=== PATIENT | male | born 1940 | race Caucasian/White ===

== ENCOUNTER → 2019-05-27 13:20 | Outpatient (CLI) | payer MEDICARE, SELFPAY ==
--- NOTE | 2019-05-27 13:24 | US_ITS ---
PROCEDURE: US KIDNEY CLINICAL INDICATION: I10 Essential (primary) hypertension COMPARISON: No exams were available for comparison FINDINGS: The right kidney is 9 x 5 x 6 cm. No hydronephrosis or cortical thinning. Left kidney is 10 x 5 x 7 cm. No hydronephrosis or cortical thinning. IMPRESSION: Negative bilateral renal ultrasound Dictated by: Silvestre Jimenez MD 05/27/2019 18:30 Electronically signed by Silvestre Jimenez MD in [place] 05/27/2019 18:30
== END ==
PROVIDERS: Visit Provider Internal Medicine
DX: I10 Essential (primary) hypertension (principal)
CPT/HCPCS: 76770

== ENCOUNTER → 2020-09-30 12:48 | Outpatient (CLI) | payer MEDICARE, SELFPAY ==
--- NOTE | 2020-09-30 13:04 | XR_ITS ---
PROCEDURE: XR DEXA AXIAL SKELETON CLINICAL HISTORY: OSTEOPOROSIS SCREENING COMPARISON: No exams were available for comparison FINDINGS: The right hip BMD is 0.813 with a T-score of -0.9. The left hip BMD is 0.994 with a T-score of -0.3. The lumbar spine BMD is 1.472 with a T-score of 3.5. IMPRESSION: This patient is considered normal according to the World Health Organization criteria. Fracture risk is low. Based on these results a follow-up exam is recommended in 2 year. Dictated by: Silvestre Jimenez MD 10/01/2020 01:18 Silvestre Jimenez MD in [place] 10/01/2020 09:44
== END ==
PROVIDERS: PCP Family Medicine; Visit Provider Internal Medicine
DX: Z87.81 Personal history of (healed) traumatic fracture (principal); Z13.820 Encounter for screening for osteoporosis
CPT/HCPCS: 77080

== ENCOUNTER → 2021-05-16 15:40 | Outpatient (CLI) | payer MEDICARE, SELFPAY ==
[2021-05-16 15:55] LABS: Coronavirus 19, PCR Not Detected (NotDetected); Influenza A, PCR Not Detected (NotDetected); Influenza B, PCR Not Detected (NotDetected)
[2021-05-16 15:56] VITALS: BMI 25.8
== END ==
PROVIDERS: Visit Provider Internal Medicine
DX: Z20.822 Contact with and (suspected) exposure to COVID-19 (principal)
CPT/HCPCS: C9803; U0003; U0005

== ENCOUNTER → 2021-05-16 16:37 | Outpatient (CLI) | payer MEDICARE, SELFPAY ==
[2021-05-16 17:13] LABS: Basophils # 0.1 K/mm3 (0-0.2); Basophils % 1.7 % (0.1-2.0); Eosinophils # 0.3 K/mm3 (0.0-0.4); Eosinophils % 6.9 % (0.1-12.0); Hematocrit 45.1 % (42.0-52.0); Hemoglobin 14.8 g/dL (14.1-18.0); Lymphocytes # 2.2 K/mm3 (0.7-4.5); Lymphocytes % 45.4 % (10-50); Mean Corpuscular HGB Conc 32.8 g/dL (31.8-35.4); Mean Corpuscular Hemoglobin 34.4 pg (27.0-31.2); Mean Corpuscular Volume 104.9 fl (80-94); Mean Platelet Volume 8.9 fl (7.4-10.4); Monocytes # 0.4 K/mm3 (0.1-1.0); Monocytes % 7.5 % (1.7-9.3); Neutrophils # 1.9 K/mm3 (1.8-7.8); Neutrophils % 38.5 % (37.0-80.0); Platelet Count 209 K/mm3 (142-424); Red Cell Distribution Width 13.3 % (11.5-17.5); White Blood Count 4.9 K/mm3 (4.8-10.8)
[2021-05-16 17:30] LABS: Alanine Aminotransferase 21 U/L (12-78); Albumin Level 4.3 g/dl (3.5-5.0); Alkaline Phosphatase 71 U/L (38-126); Anion Gap 7.3 mEq/L (5-15); Aspartate Amino Transferase 35 U/L (17-59); Bilirubin,Direct 0.5 mg/dl (0.0-0.4); Bilirubin,Indirect 0.5 mg/dL (0.0-0.9); Bilirubin,Unconjugated 0.5 mg/dL (0.0-1.1); Blood Urea Nitrogen 12 mg/dl (9-20); Calcium 9.3 mg/dl (8.4-10.2); Carbon Dioxide 33 mmol/L (22.0-30.0); Chloride 102 mmol/L (98-107); Chol/HDL Ratio 3.4 (1-3.5); Cholesterol 165 mg/dl (140-200); Estimated Glomerular Filt Rate 108 ml/min (>60); GFR (African American) 131 ML/MIN (>60); Glucose 94 mg/dl (74-100); HDL Cholesterol 49 mg/dl (40-60); Potassium 4.3 mmoL/L (3.5-5.1); Sodium 138 mmol/L (136-145); Total Protein,Serum 7.1 g/dl (6.3-8.2); Triglycerides 150 mg/dl (30-150); VLDL Cholesterol 30 mg/dL (0-40)
[2021-05-16 17:41] LABS: Direct LDL Cholesterol 63.75 mg/dL (100-129)
[2021-05-16 17:46] LABS: Free T4 (Free Thyroxine) 0.96 ng/dl (0.78-2.19)
[2021-05-16 18:01] LABS: Prostate Specific Ag Screen 1.9 ng/ml (0.0-4.0); Thyroid Stimulating Hormone 6.41 uIU/mL (0.465-4.68)
[2021-05-17 10:37] LABS: Vitamin B12 471 pg/mL (239-931)
[2021-05-17 10:47] LABS: Folate > 20.00 ng/mL
[2021-05-25 21:08] LABS: 1,25 Dihydroxy Vitamin D 56 pg/mL (.); 1,25-Dihydroxy, Vitamin D-2 <10 pg/mL (.); 1,25-Dihydroxy, Vitamin D-3 56 pg/mL (.)
== END ==
PROVIDERS: Nurse Practitioner Family; Visit Provider Internal Medicine
DX: I10 Essential (primary) hypertension (principal); Z12.5 Encounter for screening for malignant neoplasm of prostate
CPT/HCPCS: 80048; 80061; 80076; 82607; 82652; 82746; 84439; 84443; 85025; G0103; C9803; U0003; U0005

== ENCOUNTER → 2021-11-16 11:22 | Outpatient (CLI) | payer MEDICARE, SELFPAY ==
[2021-11-16 12:25] LABS: Basophils # 0.1 K/mm3 (0-0.2); Basophils % 1.2 % (0.1-2.0); Eosinophils # 0.2 K/mm3 (0.0-0.4); Eosinophils % 5.3 % (0.1-12.0); Hematocrit 43.9 % (42.0-52.0); Hemoglobin 14.5 g/dL (14.1-18.0); Lymphocytes % 46.5 % (10-50); Mean Corpuscular Hemoglobin 32.9 pg (27.0-31.2); Mean Corpuscular Volume 99.8 fl (80-94); Mean Platelet Volume 8.8 fl (7.4-10.4); Monocytes # 0.3 K/mm3 (0.1-1.0); Monocytes % 7.5 % (1.7-9.3); Neutrophils # 1.7 K/mm3 (1.8-7.8); Neutrophils % 39.5 % (37.0-80.0); Platelet Count 195 K/mm3 (142-424); Red Blood Count 4.41 M/mm3 (4.60-6.20); Red Cell Distribution Width 12.8 % (11.5-17.5); White Blood Count 4.3 K/mm3 (4.8-10.8)
[2021-11-16 12:48] LABS: Alanine Aminotransferase 19 U/L (12-78); Albumin Level 4.2 g/dl (3.5-5.0); Alkaline Phosphatase 80 U/L (38-126); Aspartate Amino Transferase 34 U/L (17-59); Bilirubin,Direct 0.1 mg/dl (0.0-0.4); Bilirubin,Indirect 0.9 mg/dL (0.0-0.9); Bilirubin,Unconjugated 0.9 mg/dL (0.0-1.1); Chol/HDL Ratio 4.4 (1-3.5); Cholesterol 191 mg/dl (140-200); Creatine Kinase 118 U/L (55-170); HDL Cholesterol 43 mg/dl (40-60); Total Protein,Serum 6.8 g/dl (6.3-8.2); Triglycerides 292 mg/dl (30-150); VLDL Cholesterol 58 mg/dL (0-40)
[2021-11-16 13:00] LABS: Direct LDL Cholesterol 69.16 mg/dL (100-129)
[2021-11-16 13:05] LABS: Free T4 (Free Thyroxine) 1.02 ng/dl (0.78-2.19)
[2021-11-16 16:51] LABS: Chloride 103 mmol/L (98-107); Potassium 4.8 mmoL/L (3.5-5.1); Sodium 138 mmol/L (136-145)
[2021-11-16 16:54] LABS: Anion Gap 9.8 mEq/L (5-15); Blood Urea Nitrogen 17 mg/dl (9-20); Calcium 9.7 mg/dl (8.4-10.2); Carbon Dioxide 30 mmol/L (22.0-30.0); Estimated Glomerular Filt Rate 93 ml/min (>60); GFR (African American) 112 ML/MIN (>60); Glucose 115 mg/dl (74-100)
[2021-11-17 17:11] LABS: Alpha-1-Globulin 0.2 g/dL (0.0-0.4); Alpha-2-Globulin 0.7 g/dL (0.4-1.0); Gamma Globulin 1.3 g/dL (0.4-1.8); Immunoglobulin A, Qn 394 mg/dL (61-437); Immunoglobulin G, Qn 1161 mg/dL (603-1613); Immunoglobulin M, Qn 65 mg/dL (15-143); Protein, Total 7.3 g/dL (6.0-8.5)
[2021-11-24 19:09] LABS: 1,25 Dihydroxy Vitamin D 47 pg/mL (.); 1,25-Dihydroxy, Vitamin D-2 <10 pg/mL (.); 1,25-Dihydroxy, Vitamin D-3 47 pg/mL (.)
== END ==
PROVIDERS: Visit Provider Internal Medicine
DX: I10 Essential (primary) hypertension (principal); Z79.899 Other long term (current) drug therapy
CPT/HCPCS: 36415; 80048; 80061; 80076; 82550; 82652; 82784; 84155; 84165; 84439; 84443; 85025; 86334; 86618

== ENCOUNTER → 2022-09-04 12:59 | Outpatient (CLI) | payer MEDICARE, OTHER, SELFPAY ==
--- NOTE | 2022-09-04 13:00 | CA_ITS ---
APPROVED REPORT EXAM: Comprehensive 2D, Doppler, and color-flow Echocardiogram Hatch Supervisor: JULIANNA Pettit, RVS Ht: 5 ft 10 in Wt: 195lbs BSA: 2.07 BP: 185/79 mmHg Indications: Pre-op clearance, HTN, CAD-CABG, Murmur,HLD 2D Dimensions LVDd 5.02 cm M: 4.2 - 5.9 LVEF (Visual) 64.60 % LVDs 3.24 cm M: 2.5 - 4.0 LA Volume 72.10 mL Aortic Root 3.03 cm M: 3.1 - 3.7 LA Volume Index 34.83 mL/m2 (M/F) 16-34 Left Atrium 3.44 cm M: 3.0 - 4.0 LVOT 1.99 cm (M/F) 1.5-2.5 M-Mode Dimensions RVDd 2.90 cm (0.9-2.6) LA Diam 4.52 cm (1.9-4.0) LVDd 5.56 cm (3.5-5.7) Ao Diam 3.35 cm (2.0-3.7) LVDs 3.79 cm (3.5-5.7) IVSd 0.81 cm (0.6-1.1) PWd 0.97 cm (0.6-1.1) EF (Teich) 59.30% EPSs 0.48 cm FS 31.80% EDV (Teich) 151.20 mL TAPSE 1.64 (<1.7) ESV (Teich) 61.60 mL LV Diastology E Decel Time 163.00 (160-240 msec) E/A Ratio 0.96 MED E' 5.80 (< 7 cm/sec) MED A' 6.80 cm/s E'/MED E' Ratio 14.36 (>14) LAT E' 6.20 (<10 cm/sec) LAT A' 8.10 cm/s E/LAT E' Ratio 13.44 (>14) Aortic Valve AoV Peak Randolph. 177.00 (50-130 cm/s) AO Peak GR. 12.50 mmHg AO Mean GR. 6.50 (<5 mmHg) AO VTI 42.17 (18-25 cm) Mitral Valve MV A Velocity 87.00 (40-130 cm/s) E/A Ratio 0.96 MV Decel. Time 163.00 (160-240 ms) MV PHT 70.00 ms Pulmonary Valve PV Peak Velocity 96.00 (50-150 cm/s) PA End VMAX 214.00 cm/s Tricuspid Valve TR P. Velocity 178.00 cm/s RAP Estimate 10.00 mmHg RVSP 22.70 mmHg Left Ventricle Left atrium is mildly enlarged, left ventricle is normal size, mild concentric left ventricular hypertrophy, estimated ejection fraction 55% with no regional wall motion abnormality, grade 2 diastolic dysfunction seen without tissue Doppler evidence of raise left atrial pressure. Right Ventricle Right atrium and right ventricle are normal size and contractility. Aortic Valve Aortic valve is minimally thickened and fibrosed there is no aortic stenosis or aortic insufficiency. Mitral Valve Mitral valve is grossly normal, there is trace mitral regurgitation. Tricuspid Valve Tricuspid valve grossly normal, there is trace tricuspid regurgitation, tricuspid regurgitation jet velocity is inadequate for calculation of the right ventricular systolic pressure. Pulmonic Valve Pulmonic valve is poorly visualized. Great Vessels Aortic root is normal size. Inferior vena cava is normal size with normal inspiratory collapse. Pericardium No significant pericardial effusion noted. Conclusion 1. Mildly enlarged left atrium, normal left ventricular size, mild concentric left ventricular hypertrophy, estimated ejection fraction 55% with no regional wall motion abnormality, grade 2 diastolic dysfunction seen without tissue Doppler evidence of reduced left atrial pressure. 2. Trace mitral and tricuspid regurgitation. 3. No significant pericardial effusion noted. 4. Inferior vena cava is normal size with normal inspiratory collapse. Electronically signed by : Jd Thomas MD 09/05/2022 06:09:20
--- NOTE | 2022-09-04 13:04 | XR_ITS ---
FINAL REPORT CLINICAL HISTORY: HTN, CAD/CABG COMPARISON: 04/28/2019 FINDINGS: PA and lateral views of the chest were obtained. There are postoperative changes from median sternotomy. The heart size is stable. There is a retrocardiac opacity containing air consistent with a large hiatal hernia. This may have increased since the prior exam. There is emphysema. The lungs are otherwise clear. There is no pleural effusion or pneumothorax. There are thoracic compression fractures which appear unchanged. IMPRESSION: No radiographic evidence of acute cardiac or pulmonary process. Large hiatal hernia which may have increased since the prior exam. Reviewed, Interpreted and Dictated by Ginna Mabry MD Transcribed by Annette Cedeno Authenticated and [facility]
[2022-09-04 14:07] LABS: Basophils # 0.1 K/mm3 (0-0.2); Basophils % 1.5 % (0.1-2.0); Eosinophils # 0.2 K/mm3 (0.0-0.4); Eosinophils % 4.5 % (0.1-12.0); Hematocrit 41.9 % (42.0-52.0); Hemoglobin 13.8 g/dL (14.1-18.0); Lymphocytes # 2.2 K/mm3 (0.7-4.5); Lymphocytes % 41.9 % (10-50); Mean Corpuscular Hemoglobin 32.4 pg (27.0-31.2); Mean Corpuscular Volume 98.2 fl (80-94); Mean Platelet Volume 9.6 fl (7.4-10.4); Monocytes # 0.4 K/mm3 (0.1-1.0); Monocytes % 7.9 % (1.7-9.3); Neutrophils # 2.3 K/mm3 (1.8-7.8); Neutrophils % 44.1 % (37.0-80.0); Platelet Count 172 K/mm3 (142-424); Red Blood Count 4.27 M/mm3 (4.60-6.20); Red Cell Distribution Width 13.4 % (11.5-17.5); White Blood Count 5.3 K/mm3 (4.8-10.8)
[2022-09-04 14:28] LABS: Alanine Aminotransferase 18 U/L (12-78); Albumin Level 4.2 g/dl (3.5-5.0); Alkaline Phosphatase 86 U/L (38-126); Aspartate Amino Transferase 30 U/L (17-59); Bilirubin,Direct 0.2 mg/dl (0.0-0.4); Bilirubin,Indirect 0.5 mg/dL (0.0-0.9); Bilirubin,Total 0.7 mg/dl (0.2-1.3); Bilirubin,Unconjugated 0.5 mg/dL (0.0-1.1); Blood Urea Nitrogen 17 mg/dl (9-20); Calcium 9.1 mg/dl (8.4-10.2); Carbon Dioxide 31 mmol/L (22.0-30.0); Chloride 108 mmol/L (98-107); Chol/HDL Ratio 3.2 (1-3.5); Cholesterol 145 mg/dl (140-200); Estimated Glomerular Filt Rate 81 ml/min (>60); GFR (African American) 98 ML/MIN (>60); Glucose 92 mg/dl (74-100); HDL Cholesterol 45 mg/dl (40-60); Sodium 141 mmol/L (136-145); Total Protein,Serum 6.8 g/dl (6.3-8.2); Triglycerides 226 mg/dl (30-150); VLDL Cholesterol 45 mg/dL (0-40)
[2022-09-04 14:41] LABS: Direct LDL Cholesterol 56.26 mg/dL (100-129)
[2022-09-04 14:46] LABS: 25-OH Vitamin D, Total 27.9 ng/mL (30-100)
[2022-09-04 14:47] LABS: Free T4 (Free Thyroxine) 1.31 ng/dl (0.78-2.19)
[2022-09-04 15:01] LABS: Thyroid Stimulating Hormone 0.21 uIU/mL (0.465-4.68)
[2022-09-19 18:09] LABS: 1,25 Dihydroxy Vitamin D 37 pg/mL (.); 1,25-Dihydroxy, Vitamin D-2 <10 pg/mL (.); 1,25-Dihydroxy, Vitamin D-3 35 pg/mL (.)
== END ==
PROVIDERS: PCP Family Medicine; Visit Provider Physician Assistant
DX: Z01.818 Encounter for other preprocedural examination (principal); Z95.1 Presence of aortocoronary bypass graft; I10 Essential (primary) hypertension; I25.10 Atherosclerotic heart disease of native coronary artery without angina pectoris; E78.5 Hyperlipidemia, unspecified; Z79.899 Other long term (current) drug therapy; E55.9 Vitamin D deficiency, unspecified; R35.0 Frequency of micturition; R35.89 Other polyuria; Z87.898 Personal history of other specified conditions
CPT/HCPCS: 36415; 71046; 80048; 80061; 80076; 82306; 82652; 83735; 84153; 84439; 84443; 85025; 93306

== ENCOUNTER 2025-03-04 13:10 | Emergency (ER) | payer MEDICARE, OTHER, SELFPAY ==
[2025-03-04] VITALS (9 sets, daily range): BP systolic 117–186; BP diastolic 84–152; PULSE 47–63; RESP 12–21; TEMP 36.8; O2SAT 94–98; BMI 24.4
--- OUTSIDE RECORDS SUMMARY | 2025-03-04 13:16 | XMS_ITS | Clinical Summary ---
Author Organization 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 Active UNKNOWN TO PATIENT htn med bid Active aspirin 81 mg Oral Tablet, Delayed Release (E.C.) daily. Active carvedilol (COREG) 12.5 mg Oral Tablet Take 12.5 mg by mouth 2 times daily. Active losartan (COZAAR) 50 mg Oral Tablet Take 50 mg by mouth daily. Active LEVOthyroxine (SYNTHROID) 175 mcg Oral Tablet Take 175 mcg by mouth daily. Active Active Problems Patient Care Coordination No te Formatting of this note migh t be different from the original. Attribution audit completed by Judy Black RN on 12/04/2023. Problem Noted Date Diagnosed Date Coronary arteriosclerosis 03/05/2018 Hypertensive heart disease 03/05/2018 Hypothyroidism 03/05/2018 Status post total left knee replacement 06/30/20 15 Osteoarthritis of left knee 09/23/2014 Hyperlipidemia 09/04/2014 Osteoarthritis of right knee 10/15/2013 Immunizations Immunization Administration Dates Next Due DT 03/21/2010 Influenza High Dose 06/03/2016 Pneumococcal Conjugate Vaccine 13 Valent 016 Surgical History Surgery Date Site/Laterality Comments CARDIAC SURGERY 2001 3 bypass CABG JOINT REPLACEMENT Right TOTAL KNEE ARTHROPLASTY Left TOTAL KNEE ARTHROPLASTY Right CARPAL TUNNEL RELEASE 04/23/2018 Hand/Left LEFT CARPAL TUNNEL RELEASE; Surgeon: Vincent Thurston MD; Location: [facility]; Service: Hand Medical History Medical History Date Comments CAD (coronary artery disease) Thyroid disease Decreased white blood cell count Hyperlipidemia Family History Medical History Relation Name Comments No Known Problems Father No Known Problems Mother No Known Problems Sister ADHD Neg Hx Relation Name Status Comments Father Mother Sister Social History Tobacco Use Types Packs/Day Years Used Date Smoking Tobacco: Never Smokeless Tobacco: Never Alcohol Use Standard Drinks/Week Comments Yes 0 (1 standard drink = 0.6 oz pur e alcohol) occasional PHQ-2 Answer Date Recorded PHQ-2 Score 0 12/13/2018 Sex and Gender Information Value Date Recorded Sex Assigned at Not on file Legal Sex Male 12:29 AM EDT Gender Identity Not on file Sexual Orientation Not on file Occupation Industry Job Start Date Job End Date retired Not on file Not on file Not on file Obstetrics History Last Filed Vital Signs Vital Sign Reading Time Taken Comments Blood Pressure 152/84 12/27/2021 11:05 AM EDT Pulse 52 12/27/2021 11:05 AM EDT Temperature 36.3 C (97.4 F) 04/23/2018 9:33 AM EDT Respiratory Rate 16 12/27/2021 11:05 AM EDT Oxygen Saturation 96% 04/23/2018 9:33 AM EDT Inhaled Oxygen Concentration - - Weight 87.3 kg (192 lb 6.4 oz) 12/27/2021 11:05 AM EDT Height 182.9 cm (6') 12/27/2021 11:05 AM EDT Body Mass Index 26.09 12/27/2021 11:05 AM EDT Plan of Treatment Health Maintenance Due Date Last Done Comments Wellness Exam Medicare 1943 Zoster (1 of 2) 1989 RSV or 60+ (1 - 1-dose 75+ series) 2014 Pneumococcal Vaccine 50+ (2 of 2 - PCV20 or PCV21) 06/03/2017 06/03/2016 DTaP/TDaP/Td (2 - Tdap) 03/21/2020 03/21/2010 COVID-19 Vaccine (4 - 2023-2 5 season) 2024 06/01/2021, 09/17/2020, 08/19/2020 Influenza Vaccine (#1) 2025 6, 05/26/2015 Hepatitis B Vaccine Aged Out No longe r eligible based on patient's age to complete this topic Meningococcal B Vaccine Aged Out No l onger eligible based on patient's age to complete this topic Goals Goal Patient Goal Type Associated Problems Recent Progress Patient-Stated? 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
--- OUTSIDE RECORDS SUMMARY | 2025-03-04 13:16 | XMS_ITS | Clinical Summary ---
Author Organization [facility] Address [address], [address] [place] [address] Care Team Providers Care Veterans Adviser Name Role Phone System, Referring Not In Primary Care Provider U navailable Allergies No known active allergies Medications HYDROcodone-beau taminophen (NORCO) 5-325 MG per tablet Take 1 tablet by mouth 2 times daily as needed for Pain (may take one or two pills for pain every 4-6 hours.). 60 tablet 1 08/25/2013 Active atorvastatin (LIPITOR) 80 MG tablet Take 80 mg by mouth daily. Active levothyroxine (SYNTHROID) 150 MCG tablet Take 150 mcg by mouth Daily. 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 Total knee replacement status 02/11/2014 Osteoarthritis of right knee 12/09/2013 Knee effusion 10/15/2013 Knee pain 10/15/2013 Knee pain, acute 10/15/2013 Osteoarthritis of right knee 10/15/2013 Osteoarthritis 10/15/2013 Immunizations Immunization Administration Dates Next Due Influenza, FLUZONE High Dose , (age 65 y+), IM, Trivalent PF, 0.5mL 05/26/2015 Family History Relation Name Status Comments Father Mother Social History Tobacco Use Types Packs/Day Years Used Date Smoking Tobacco: Never Alcohol Use Standard Drinks/Week Comments Yes 0 (1 standard drink = 0.6 oz pur e alcohol) rarely Sex and Gender Information Value Date Recorded Sex Assigned at Not on file Legal Sex Male 1:42 PM EST Gender Identity Not on file Sexual Orientation Not on file Last Filed Vital Signs Vital Sign Reading Time Taken Comments Blood Pressure 142/84 06/30/2015 1:41 PM EST Pulse 63 06/30/2015 1:41 PM EST Temperature 37.5 C (99.5 F) 05/27/2015 7:58 AM EST Respiratory Rate 16 05/27/2015 7:58 AM EST Oxygen Saturation 94% 05/27/2015 8:32 AM EST Inhaled Oxygen Concentration - - Weight 83 kg (183 lb) 06/30/2015 1:39 PM EST Height 185.4 cm (6' 1 ) 06/30/2015 1:39 PM EST Body Mass Index 24.14 06/30/2015 1:39 PM EST Plan of Treatment Not on file Insurance [facility] [id number] MEDICARE Advance Directives * Full Code (Latest Code Status on File) Date Activated Date Inactivated Comments 05/25/2015 1:53 PM 05/27/2015 1:09 PM * Full Code Date Activated Date Inactivated Comments 12/09/2013 2:01 PM 12/11/2013 2:16 PM Care Teams Veterans Adviser Relationship Specialty Start Date End Date System, Referring Not In PCP - General 05/04/15
--- NOTE | 2025-03-04 13:20 | CT_ITS ---
FINAL REPORT CLINICAL HISTORY: severe new BURNETTE x1 wk COMPARISON: none FINDINGS: CTA HEAD TECHNIQUE: Thin section axial CT with contrast with 3D MIP reconstruction This study was performed with techniques to keep radiation doses as low as reasonably achievable, (ALARA). Individualized dose reduction techniques using automated exposure control or adjustment of mA and/or kV according to the patient's size were employed. FINDINGS: The A1 segment of the left YUSRA is hypoplastic. Central YUSRA and MCA are otherwise unremarkable. 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 The duplicate maker are widely patent. IMPRESSION: No acute large vessel occlusive disease. 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 This study was performed using automated techniques to achieve radiation exposure as low as reasonably achievable Reviewed, Interpreted and Dictated by Rigo Trevino MD Transcribed by Edilma Gomez Authenticated and [facility]
--- NOTE | 2025-03-04 13:20 | CT_ITS ---
FINAL REPORT CLINICAL HISTORY: severe new BURNETTE x1 wk COMPARISON: none FINDINGS: CT NECK ANGIO, WITHOUT AND WITH CONTRAST TECHNIQUE: Thin section axial CT with contrast with multiplanar 3D MIP reconstruction. This study was performed with techniques to keep radiation doses as low as reasonably achievable, (ALARA). Individualized dose reduction techniques using automated exposure control or adjustment of mA and/or kV according to the patient''s size were employed. NASCET criteria and technique was utilized during interpretation. FINDINGS: Aortic arch: Arch shows no significant narrowing. Great vessel origins are widely patent. Right carotid: Severe calcified plaque disease proximal right ICA. Proximal right ICA stenosis measures 70-80%. Left carotid: Moderate to severe calcified plaque disease proximal ICA with narrowing measuring 60-70%. Vertebrals: Left vertebral artery is dominant. No significant stenosis is present. IMPRESSION: Right ICA stenosis 70-80% and left ICA stenosis 60-70%. This study was performed using automated techniques to achieve radiation exposure as low as reasonably Reviewed, Interpreted and Dictated by Rigo Trevino MD Transcribed by Edilma Gomez Authenticated and [facility]
--- NOTE | 2025-03-04 13:20 | CT_ITS ---
FINAL REPORT TECHNIQUE: Noncontrast exam This study was performed with techniques to keep radiation doses as low as reasonably achievable, (ALARA). Individualized dose reduction techniques using automated exposure control or adjustment of mA and/or kV according to the patient''s size were employed. CLINICAL HISTORY: severe new BURNETTE x1 wk COMPARISON: none FINDINGS: No abnormal density is seen. Moderate atrophy is noted. There are mild chronic microvascular changes. There is no hemorrhage. No mass effect is seen. Bone windows show no evidence of fracture. IMPRESSION: No acute findings Reviewed, Interpreted and Dictated by Rigo Trevino MD Transcribed by Edilma Gomez Authenticated and [facility]
--- NOTE | 2025-03-04 13:23 | HMH.EDGENADL ---
Discharge Plan Disposition Patient Disposition: Home, Self-Care Prescriptions Prescriptions: No Action aspirin 81 mg tablet,delayed release (DR/EC) 81 mg PO DAILY losartan 50 mg tablet 50 mg PO BID Qty: 180 3RF atorvastatin 80 mg tablet See Rx Instructions .ROUTE .COMPLEX Qty: 90 4RF Dose Instruction: TAKE 1 TABLET BY MOUTH EVERY DAY FOR CHOLESTEROL Rx Instructions: TAKE 1 TABLET BY MOUTH EVERY DAY FOR CHOLESTEROL carvedilol 12.5 mg tablet See Rx Instructions .ROUTE .COMPLEX Qty: 180 1RF Dose Instruction: TAKE ONE TABLET BY MOUTH TWICE A DAY Rx Instructions: TAKE ONE TABLET BY MOUTH TWICE A DAY levothyroxine 175 mcg capsule 175 mcg PO DAILY Qty: 90 3RF Referrals Follow up/Referrals: Balwinder Elliott MD [Referring, Medical] - See instructions Activity Restrictions/Add. 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 If you develop any new or worsening symptoms, such as worsening headache, facial drooping, lethargy, weakness on one or both sides of your body, or any other signs concerning for stroke, return to the emergency department for evaluation. Clinical Impressions Clinical Impression: Headache, Hypertension, Aneurysm of basilar artery Print Language Print Language: [place] Citizen Discharge ED Provider: Taylor Baker General Adult HPI <Taylor Baker MD - Last Filed: 03/04/25 15:46> General Chief complaint: Headache Stated complaint: headache Time Seen by Provider: 03/04/25 13:12 Mode of Arrival: Ambulatory Source of Information: Patient and Spouse Description of Symptoms (Recalled from ER Triage Doc. by RN): patient present from Cardiology office for a headache that has been around for approximately a week. he is currently rates his headache at a 4/10. he normally does not have headaches. the patient also statesnthat he has higher blood pressure than normal. he did state he took his prescribed carvedilol this morning. History of Present Illness HPI narrative: Patient is a 84-year-old male presents today with a headache. States that it has been ongoing for the last week no history of headaches at any point in his life. Has been fluctuating throughout the day reached its maximal intensity today this morning is which point he said it was a 10 out of 10 some of the worst pain he is ever had in his life. He took 1000 mg of acetaminophen and that significantly improved it is currently a 4 out of 10 and is just an annoying pain. He states the majority of the week it has just been an annoyance but this morning it was severe. Denies any neurologic symptoms such as numbness weakness tingling changes in coordination or vision etc. Does state he is had some mild photophobia associated with the headaches but it improves when the headache gets better. Does note that he may have had some improvement as his blood pressure has dropped. Denies any neck stiffness denies any fevers or chills. Denies any changes in vision or jaw claudication. Denies any other upper respiratory symptoms that been ongoing or pressure in his face or sinuses. Past medical history reviewed with his son Bernadine Guerrero. He also had an EKG that was performed in cardiology office which showed sinus bradycardia. Related Data Home Medications ?Medication ?Instructions ?Recorded ?Confirmed aspirin 81 mg tablet,delayed 81 mg PO DAILY heart. 03/31/19 03/04/25 release Previous Rx's ?Medication ?Instructions ?Recorded losartan 50 mg tablet 50 mg PO BID #180 tabs 11/05/23 atorvastatin 80 mg tablet See Rx Instructions .Route 07/08/24 .COMPLEX #90 tabs carvedilol 12.5 mg tablet See Rx Instructions .Route 08/04/24 .COMPLEX #180 tabs levothyroxine 175 mcg capsule 175 mcg PO DAILY #90 caps 11/05/24 Allergies Allergy/AdvReac Type Severity Reaction Status Date / Time No Known Allergies Allergy Verified 03/04/25 12:54 [facility] <J Timothy Baker MD - Last Filed: 03/04/25 15:46> [facility] Disclaimer: The information contained in this section may have been updated after the patient was seen, as this information can be updated by other users. Medical History History of dysuria On statin therapy Hyperlipidemia Surgical History Hx of CABG Social History Smoking Status: Never smoker alcohol intake: never current occupational status: retired Travel in the last 8 weeks?: None household members: spouse housing: house current occupational exposures/hazards: No caffeine: Yes Have you lived/traveled outside US in past 30 days?: No Contact w/someone who lives/traveled outside US past 30 days?: No Exposure to someone with infectious disease in past 14 days?: No Do you have a fever (greater than 100.4 F or 38 C)?: No Have you tested positive for COVID-19?: No Exposed to someone with COVID-19 in past 14 days?: No Do you have a sore throat?: No Do you have a cough?: No Do you have any weakness?: No Do you have any diarrhea?: No Are you experiencing any unusual bleeding?: No Do you have any muscle aches/pain?: No Do you have any abdominal pain?: No Are you experiencing loss of taste or smell?: No Other Medical History Have you received the Flu Vaccine for this season: Yes Have you received the Pneumonia Vaccine: Yes <Taylor Baker MD - Last Filed: 03/04/25 15:46> ROS Obtained: Yes All systems reviewed & no additional complaints except as documented Physical Exam <Taylor Baker MD - Last Filed: 03/04/25 15:46> General General appearance: alert and in no apparent distress Respiratory Respiratory exam: Present normal lung sounds bilaterally; Absent respiratory distress Cardiovascular Cardiovascular exam: Present bradycardia Neurological Exam Neurological exam: Present alert, oriented X3, CN II-XII intact, normal gait and other (Normal finger-nose [id number] rapid alternating movements very sharp cognitively); Absent motor sensory deficit Medical Decision Making <Taylor Baker MD - Last Filed: 03/04/25 15:46> Medical Records Screening: Per USPSTF and CDC recommendations, given the prevalence of disease in our region, it is our hospital?s policy to screen for HIV and viral Hepatitis for all patients aged 18 and over and those with ongoing risk factors. Marcelino Inquiry Pt receiving controlled substance: No Vital Signs: 03/04/25 13:15 03/04/25 14:18 03/04/25 14:30 Temperature 98.2 F Temperature Source Oral Pulse Rate 56 L 54 L Pulse Rate [Right Brachial] 47 L Respiratory Rate 18 Blood Pressure 186/92 H 184/92 H Blood Pressure [Right Arm] 164/128 H Blood Pressure Mean [Right Arm] 140 Blood Pressure Source [Right Arm] Automatic Cuff Blood Pressure Position [Right Arm] Sitting 02 Sat by Pulse Oximetry 98 98 97 Oxygen Delivery Method Room Air 03/04/25 15:01 03/04/25 15:10 03/04/25 15:31 Temperature Temperature Source Pulse Rate 63 59 L 58 L Pulse Rate [Right Brachial] Respiratory Rate 12 21 14 Blood Pressure 160/88 H 156/84 H 165/87 H Blood Pressure [Right Arm] Blood Pressure Mean [Right Arm] Blood Pressure Source [Right Arm] Blood Pressure Position [Right Arm] 02 Sat by Pulse Oximetry 96 95 94 L Oxygen Delivery Method 03/04/25 16:01 03/04/25 16:20 03/04/25 16:31 Temperature 98.2 F Temperature Source Oral Pulse Rate 56 L 52 L 53 L Pulse Rate [Right Brachial] Respiratory Rate 16 20 17 Blood Pressure 174/152 H 171/92 H 117/92 H Blood Pressure [Right Arm] Blood Pressure Mean [Right Arm] Blood Pressure Source [Right Arm] Blood Pressure Position [Right Arm] 02 Sat by Pulse Oximetry 97 96 Oxygen Delivery Method Room Air Lab Data Lab Results 03/04/25 13:11: WBC 6.0, RBC 4.35 L, Hgb 13.7 L, Hct 41.7 L, MCV 95.9 H, MCH 31.5 H, MCHC 32.9, RDW 12.7, Plt Count 182, MPV 11.0 H, Neut % (Auto) 53.3, Lymph % (Auto) 35.7, [place] % (Auto) 8.7, Eos % (Auto) 1.3, Baso % (Auto) 0.7, Neut # (Auto) 3.2, Lymph # (Auto) 2.1, [place] # (Auto) 0.5, Eos # (Auto) 0.1, Baso # (Auto) 0.0, ESR 14, Sodium 139, Potassium 4.5, Chloride 102, Carbon Dioxide 31 H, Anion Gap 10.5, BUN 16, Creatinine 0.70, Estimated Creat Clear 62, Estimated GFR 107, Est GFR ( Amer) 130, Glucose 110 H, Calcium 9.2, Total Bilirubin 0.9, AST 42, ALT 31, Alkaline Phosphatase 91, C-Reactive Protein 0.4, Total Protein 7.4, Albumin 4.5, Globulin 2.9, Albumin/Globulin Ratio 1.6, TSH < 0.02 L, Free T4 1.74 03/04/25 15:05: Chlamy pneumoniae PCR Not detected, Adenovirus (PCR) Not detected, B. pertussis DNA (PCR) Not detected, Coronavirus OC43 (PCR) Not detected, Coronavirus HKU1 (PCR) Not detected, Coronavirus 229E (PCR) Not detected, SARS-CoV-2 (PCR) Not detected, Coronavirus NL63 (PCR) Not detected, Human Metapneumovir PCR Not detected, Influenza A (H1) PCR Not detected, Influ A (H1N1/09) PCR Not detected, Influenza A (H3) PCR Not detected, Influenza Type A (PCR) Not detected, Influenza Type B (PCR) Not detected, M. pneumoniae (PCR) Not detected, Parainfluenza 1 (PCR) Not detected, Parainfluenza 2 (PCR) Not detected, Parainfluenza 3 (PCR) Not detected, Parainfluenza 4 (PCR) Not detected, RSV (PCR) Not detected, Entero/Rhino (PCR) Not detected 03/04/25 13:11 03/04/25 13:11 Orders (Tests/Meds): ED MEDICATIONS Discontinued Medications Generic Name Dose Route Start Last Admin Trade Name Freq PRN Reason Stop Dose Admin Diazepam 5 mg 03/04/25 14:56 03/04/25 15:02 Diazepam 10mg/2ml Syringe IV 03/04/25 14:57 5 mg ONCE ONE Administration Diphenhydramine HCl 12 mg 03/04/25 13:20 03/04/25 13:33 Diphenhydramine 50mg/Ml Vial IV 03/04/25 13:21 12 mg ONCE ONE Administration Lactated Ringer's 500 mls @ 999 mls/hr 03/04/25 13:30 03/04/25 13:35 Lactated Ringer's 1000 Ml Bag IV 03/04/25 14:00 999 mls/hr .Q31M LIBERTAD Administration Iopamidol 80 ml 03/04/25 14:02 03/04/25 14:03 Iopamidol-370 (76%);100ml Bottle IV 03/04/25 14:03 80 ml ONCE ONE Administration Ketorolac Tromethamine 10 mg 03/04/25 13:20 03/04/25 13:34 Ketorolac 30mg/Ml Vial IV 03/04/25 13:21 10 mg ONCE ONE Administration Prochlorperazine Edisylate 5 mg 03/04/25 13:20 03/04/25 13:35 Prochlorperazine 10mg/2ml Vial IV 03/04/25 13:21 5 mg ONCE ONE Administration Sodium Chloride 50 ml 03/04/25 14:02 03/04/25 14:03 0.9 % Sodium Chloride 50 Ml Vial IV 03/04/25 14:03 50 ml ONCE ONE Administration Sodium Chloride 10 ml 03/04/25 14:02 03/04/25 14:03 Sodium Chloride 0.9% 10ml Syr (Rad Only) IV 03/04/25 14:03 10 ml ONCE ONE Administration ORDERS Category Date Time Status CT angio head Stat Cat Scan 03/04/25 13:[address] angio neck Stat Cat Scan 03/04/25 13:[address] head/brain wo con Stat Cat Scan 03/04/25 13:20 Completed CBC w/Auto Diff [Complete Blood Count Auto Diff] Stat Lab 03/04/25 13:11 Completed CMP [Comprehensive Metabolic Panel] Stat Lab 03/04/25 13:11 Completed CRP [C-Reactive Protein] Stat Lab 03/04/25 13:11 Completed ESR [Erythrocyte Sedimentation Rate] Stat Lab 03/04/25 13:11 Completed Free T4 (Free Thyroxine) Routine Lab 03/04/25 13:11 Completed Full Resp Panel w/COVID ([facility]) Routine Lab 03/04/25 15:05 Completed TSH [Thyroid Stimulating Hormone] Stat Lab 03/04/25 13:11 Completed Medical Decision Narrative: Very well-appearing 84-year-old male presenting today with 1 week history of a headache. Differential includes space-occupying lesion, hemorrhage, vascular dissection, vasculitis, encephalitis, aneurysm etc. Will get a noncontrasted CT scan however given the fact that this has been ongoing for 1 week any type of blood that would have to be in his brain would be isodense therefore we will get a CT angiography of the head and neck to rule out any dissection or obvious aneurysm. No indication for an LP at this point as the number needed to treat would be excessive with regards to looking present acromio he also has no clinical signs or symptoms at the moment of meningitis. Will give him low-dose of migraine cocktail including 10 of IV Toradol 5 of Compazine and 12-1/2 of Benadryl. Reassessment 3:[address] scans performed which I personally interpreted noncontrasted CT scan of the head looks unremarkable from my perspective radiology read consistent with this as well. 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 No all other explanation of the patient's symptoms. Patient on reassessment clinically looks great states that his headache is much better. He is still significantly hypertensive. His son who is one of our terminal carman had a discussion with me and told me that the patient does drink some bourbon regularly and has been drinking little bit less than normal and that it is possible he is having some mild withdrawal which may be causing his hypertension therefore we gave him some Valium which significantly improved the patient's symptoms. Given the fact that we found this 9 mm aneurysm we cannot prove that this is causative of the patient's underlying headache however it is concerning enough that we will have a discussion with [facility] neurosurgery we are awaiting that phone call back at the moment. Care will be transitioned to Dr. Boateng regarding final disposition of the patient. <Gabriel Pichardo MD - Last Filed: 03/04/25 18:02> Vital Signs: 03/04/25 13:15 03/04/25 14:18 03/04/25 14:30 Temperature 98.2 F Temperature Source Oral Pulse Rate 56 L 54 L Pulse Rate [Right Brachial] 47 L Respiratory Rate 18 Blood Pressure 186/92 H 184/92 H Blood Pressure [Right Arm] 164/128 H Blood Pressure Mean [Right Arm] 140 Blood Pressure Source [Right Arm] Automatic Cuff Blood Pressure Position [Right Arm] Sitting 02 Sat by Pulse Oximetry 98 98 97 Oxygen Delivery Method Room Air 03/04/25 15:01 03/04/25 15:10 03/04/25 15:31 Temperature Temperature Source Pulse Rate 63 59 L 58 L Pulse Rate [Right Brachial] Respiratory Rate 12 21 14 Blood Pressure 160/88 H 156/84 H 165/87 H Blood Pressure [Right Arm] Blood Pressure Mean [Right Arm] Blood Pressure Source [Right Arm] Blood Pressure Position [Right Arm] 02 Sat by Pulse Oximetry 96 95 94 L Oxygen Delivery Method 03/04/25 16:01 03/04/25 16:20 03/04/25 16:31 Temperature 98.2 F Temperature Source Oral Pulse Rate 56 L 52 L 53 L Pulse Rate [Right Brachial] Respiratory Rate 16 20 17 Blood Pressure 174/152 H 171/92 H 117/92 H Blood Pressure [Right Arm] Blood Pressure Mean [Right Arm] Blood Pressure Source [Right Arm] Blood Pressure Position [Right Arm] 02 Sat by Pulse Oximetry 97 96 Oxygen Delivery Method Room Air Lab Data Lab Results 03/04/25 13:11: WBC 6.0, RBC 4.35 L, Hgb 13.7 L, Hct 41.7 L, MCV 95.9 H, MCH 31.5 H, MCHC 32.9, RDW 12.7, Plt Count 182, MPV 11.0 H, Neut % (Auto) 53.3, Lymph % (Auto) 35.7, [place] % (Auto) 8.7, Eos % (Auto) 1.3, Baso % (Auto) 0.7, Neut # (Auto) 3.2, Lymph # (Auto) 2.1, [place] # (Auto) 0.5, Eos # (Auto) 0.1, Baso # (Auto) 0.0, ESR 14, Sodium 139, Potassium 4.5, Chloride 102, Carbon Dioxide 31 H, Anion Gap 10.5, BUN 16, Creatinine 0.70, Estimated Creat Clear 62, Estimated GFR 107, Est GFR ( Amer) 130, Glucose 110 H, Calcium 9.2, Total Bilirubin 0.9, AST 42, ALT 31, Alkaline Phosphatase 91, C-Reactive Protein 0.4, Total Protein 7.4, Albumin 4.5, Globulin 2.9, Albumin/Globulin Ratio 1.6, TSH < 0.02 L, Free T4 1.74 03/04/25 15:05: Chlamy pneumoniae PCR Not detected, Adenovirus (PCR) Not detected, B. pertussis DNA (PCR) Not detected, Coronavirus OC43 (PCR) Not detected, Coronavirus HKU1 (PCR) Not detected, Coronavirus 229E (PCR) Not detected, SARS-CoV-2 (PCR) Not detected, Coronavirus NL63 (PCR) Not detected, Human Metapneumovir PCR Not detected, Influenza A (H1) PCR Not detected, Influ A (H1N1/09) PCR Not detected, Influenza A (H3) PCR Not detected, Influenza Type A (PCR) Not detected, Influenza Type B (PCR) Not detected, M. pneumoniae (PCR) Not detected, Parainfluenza 1 (PCR) Not detected, Parainfluenza 2 (PCR) Not detected, Parainfluenza 3 (PCR) Not detected, Parainfluenza 4 (PCR) Not detected, RSV (PCR) Not detected, Entero/Rhino (PCR) Not detected Orders (Tests/Meds): ED MEDICATIONS Discontinued Medications Generic Name Dose Route Start Last Admin Trade Name Shane PRN Reason Stop Dose Admin Diazepam 5 mg 03/04/25 14:56 03/04/25 15:02 Diazepam 10mg/2ml Syringe IV 03/04/25 14:57 5 mg ONCE ONE Administration Diphenhydramine HCl 12 mg 03/04/25 13:20 03/04/25 13:33 Diphenhydramine 50mg/Ml Vial IV 03/04/25 13:21 12 mg ONCE ONE Administration Lactated Ringer's 500 mls @ 999 mls/hr 03/04/25 13:30 03/04/25 13:35 Lactated Ringer's 1000 Ml Bag IV 03/04/25 14:00 999 mls/hr .Q31M LIBERTAD Administration Iopamidol 80 ml 03/04/25 14:02 03/04/25 14:03 Iopamidol-370 (76%);100ml Bottle IV 03/04/25 14:03 80 ml ONCE ONE Administration Ketorolac Tromethamine 10 mg 03/04/25 13:20 03/04/25 13:34 Ketorolac 30mg/Ml Vial IV 03/04/25 13:21 10 mg ONCE ONE Administration Prochlorperazine Edisylate 5 mg 03/04/25 13:20 03/04/25 13:35 Prochlorperazine 10mg/2ml Vial IV 03/04/25 13:21 5 mg ONCE ONE Administration Sodium Chloride 50 ml 03/04/25 14:02 03/04/25 14:03 0.9 % Sodium Chloride 50 Ml Vial IV 03/04/25 14:03 50 ml ONCE ONE Administration Sodium Chloride 10 ml 03/04/25 14:02 03/04/25 14:03 Sodium Chloride 0.9% 10ml Syr (Rad Only) IV 03/04/25 14:03 10 ml ONCE ONE Administration ORDERS Category Date Time Status CT angio head Stat Cat Scan 03/04/25 13:[address] angio neck Stat Cat Scan 03/04/25 13:[address] head/brain wo con Stat Cat Scan 03/04/25 13:20 Completed CBC w/Auto Diff [Complete Blood Count Auto Diff] Stat Lab 03/04/25 13:11 Completed CMP [Comprehensive Metabolic Panel] Stat Lab 03/04/25 13:11 Completed CRP [C-Reactive Protein] Stat Lab 03/04/25 13:11 Completed ESR [Erythrocyte Sedimentation Rate] Stat Lab 03/04/25 13:11 Completed Free T4 (Free Thyroxine) Routine Lab 03/04/25 13:11 Completed Full Resp Panel w/COVID ([facility]) Routine Lab 03/04/25 15:05 Completed TSH [Thyroid Stimulating Hormone] Stat Lab 03/04/25 13:11 Completed Medical Decision Narrative: Very well-appearing 84-year-old male presenting today with 1 week history of a headache. Differential includes space-occupying lesion, hemorrhage, vascular dissection, vasculitis, encephalitis, aneurysm etc. Will get a noncontrasted CT scan however given the fact that this has been ongoing for 1 week any type of blood that would have to be in his brain would be isodense therefore we will get a CT angiography of the head and neck to rule out any dissection or obvious aneurysm. No indication for an LP at this point as the number needed to treat would be excessive with regards to looking present acromio he also has no clinical signs or symptoms at the moment of meningitis. Will give him low-dose of migraine cocktail including 10 of IV Toradol 5 of Compazine and 12-1/2 of Benadryl. Reassessment 3:[address] scans performed which I personally interpreted noncontrasted CT scan of the head looks unremarkable from my perspective radiology read consistent with this as well. 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 No all other explanation of the patient's symptoms. Patient on reassessment clinically looks great states that his headache is much better. He is still significantly hypertensive. His son who is one of our terminal carman had a discussion with me and told me that the patient does drink some bourbon regularly and has been drinking little bit less than normal and that it is possible he is having some mild withdrawal which may be causing his hypertension therefore we gave him some Valium which significantly improved the patient's symptoms. Given the fact that we found this 9 mm aneurysm we cannot prove that this is causative of the patient's underlying headache however it is concerning enough that we will have a discussion with [facility] neurosurgery we are awaiting that phone call back at the moment. Care will be transitioned to Dr. Pichardo regarding final disposition of the patient. Gabriel Pichardo MD I assumed care of Mr. Guerrero at approximately 1545 pending [facility] neurosurgery recommendations. The patient's son, Dr. Fadi Guerrero, who is an terminal carman here in [facility] had a personal conversation with Dr. Francis with the neurosurgery team at [facility] who stated that there is nothing to do about it now and they will arrange close outpatient follow-up. Dr. Guerreor stated that they he will also work on tighter blood pressure control as an outpatient. Overall, patient still does have a slight headache but overall feels much improved after drinking coffee and after 5 mg of Valium. Given this, so the patient is appropriate for discharge at this time. Will give strict return precautions. Patient was then discharged in the emergency department in stable condition. Critical Care <Taylor Baker MD - Last Filed: 03/04/25 15:46> Critical Care Time Critical Care Time: No
[2025-03-04 13:25] LABS: Hematocrit 41.7 % (42.0-52.0); Hemoglobin 13.7 g/dL (14.1-18.0); Immature Granulocytes % 0.3 %; Mean Corpuscular HGB Conc 32.9 g/dL (31.8-35.4); Mean Corpuscular Hemoglobin 31.5 pg (27.0-31.2); Mean Corpuscular Volume 95.9 fl (80-94); Nucleated Red Blood Cells % 0 %; Platelet Count 182 K/mm3 (142-424); Red Blood Count 4.35 M/mm3 (4.60-6.20); Red Cell Distribution Width-SD 44.4 fL; White Blood Count 6.0 K/mm3 (4.8-10.8)
[2025-03-04] MEDS: KETOROLAC 30MG/ML VIAL 10 MG IV (13:34)
[2025-03-04] MEDS: PROCHLORPERAZINE 10MG/2ML VIAL 5 MG IV (13:35)
[2025-03-04] MEDS: LACTATED RINGERS 1000ML 500 ML 999 ML IV (13:35)
[2025-03-04 13:36] LABS: Alanine Aminotransferase 31 U/L (12-78); Albumin Level 4.5 g/dl (3.5-5.0); Albumin/Globulin Ratio 1.6 (1.1-1.8); Alkaline Phosphatase 91 U/L (38-126); Anion Gap 10.5 mEq/L (5-15); Aspartate Amino Transferase 42 U/L (17-59); Bilirubin,Total 0.9 mg/dl (0.2-1.3); Blood Urea Nitrogen 16 mg/dl (9-20); Calcium 9.2 mg/dl (8.4-10.2); Carbon Dioxide 31 mmol/L (22.0-30.0); Chloride 102 mmol/L (98-107); Creatinine Clearance Estimated 62 mL/min (50-200); Creatinine,Serum 0.70 mg/dl (0.66-1.25); Estimated Glomerular Filt Rate 107 ml/min (>60); GFR (African American) 130 ML/MIN (>60); Globulin 2.9 g/dL (1.3-3.2); Glucose 110 mg/dl (74-100); Potassium 4.5 mmoL/L (3.5-5.1); Sodium 139 mmol/L (136-145); Total Protein,Serum 7.4 g/dl (6.3-8.2)
[2025-03-04 13:40] LABS: C-Reactive Protein 0.4 mg/L (0-4)
[2025-03-04] MEDS: SODIUM CHLORIDE 0.9% 10ML SYR (RAD ONLY) 10 ML IV (14:03)
[2025-03-04] MEDS: IOPAMIDOL-370 (76%);100ML BOTTLE 80 ML IV (14:03)
[2025-03-04] MEDS: 0.9 % SODIUM CHLORIDE 50 ML VIAL IV (14:03)
--- NOTE | 2025-03-04 14:04 | PC.NURSE ---
patient back from radiology
[2025-03-04] MEDS: diazePAM 10MG/2ML SYRINGE 5 MG IV (15:02)
--- NOTE | 2025-03-04 15:04 | PC.NURSE ---
images power shared to [facility]
[2025-03-04 15:13] LABS: Adenovirus,PCR Not Detected (NotDetected); Chlamydophila Pneumoniae, PCR Not Detected (NotDetected); Coronavirus 19, PCR Not Detected (NotDetected); Coronovirus HKU1,PCR Not Detected (NotDetected); Influenza A, PCR Not Detected (NotDetected); Influenza AH1, 2009 Not Detected (NotDetected); Influenza AH1, PCR Not Detected (NotDetected); Influenza AH3,PCR Not Detected (NotDetected); Influenza B, PCR Not Detected (NotDetected); Mycoplasma Pneumoniae, PCR Not Detected (NotDetected); Parainfluenza 1, PCR Not Detected (NotDetected); Parainfluenza 2, PCR Not Detected (NotDetected); Parainfluenza 3, PCR Not Detected (NotDetected); Parainfluenza 4, PCR Not Detected (NotDetected)
--- NOTE | 2025-03-04 15:20 | PC.NURSE ---
Neurosurgery was called for possible patient transfer, waiting on a call back. Images have been power shared.
[2025-03-04 15:39] LABS: Thyroid Stimulating Hormone < 0.02 uIU/mL (0.465-4.68)
[2025-03-04 16:04] LABS: Free T4 (Free Thyroxine) 1.74 ng/dl (0.78-2.19)
== END 2025-03-04 16:33 | disposition home or self-care (01) ==
PROVIDERS: Emergency Provider Student in an Organized Health Care Education/Training Program
DX: I72.5 Aneurysm of other precerebral arteries (principal); R51.9 Headache, unspecified; I10 Essential (primary) hypertension
CPT/HCPCS: 0223U; 70450; 70496; 70498; 80053; 84439; 84443; 85025; 85651; 86140; 96374; 96375; 99285; J0780; J1200; J1885; J3360; J7120; Q9967

== ENCOUNTER 2025-03-11 14:11 | Outpatient (CLI) | payer MEDICARE, OTHER, SELFPAY ==
--- OUTSIDE RECORDS SUMMARY | 2025-03-11 14:17 | XMS_ITS | Encounter Summary ---
Author Organization Healthcare Address [address] 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 Name Role Phone Unavailable Primary Care Provider Unavailabl e Encounter Details Date Type Department Care Team (Late st Contact Info) Description 03/04/2025 Orders Only External Location [address] [place] [address] Timothy Baker MD [address] [facility] [address] [place] [address] Social History Tobacco Use Types Packs/Day Years Used Date Smoking Tobacco: Never Assessed Sex and Gender Information Value Date Recorded Sex Assigned at Not on file Legal Sex Male 3:19 PM EDT Gender Identity Not on file Sexual Orientation Not on file documented as of this encounter Plan of Treatment Upcoming Encounters Date Type Department Care Team (Late st Contact Info) Description 08/14/2025 11:00 AM EST Appointment [facility] MRI [address] [place] [id number] 08/14/2025 1:15 PM EST Office Visit [facility] [address] [place] [address] Matthew Francis MD [address] [place] [address] documented as of this encounter Procedures Procedure Name Priority Date/Time Associated Diagnosis Comments CT OUTSIDE IMAGES 03/04/2025 1:59 PM EDT documented in this encounter Results * CT OUTSIDE IMAGES (03/04/2025 1:59 PM EDT) Anatomical Region Laterality Modality Computed Tomogra phy 03/04/2025 1:59 PM EDT us Timothy Baker MD IMG CT PROCEDURES Final Result documented in this encounter Visit Diagnoses Not on filedocumented in this encounter
--- OUTSIDE RECORDS SUMMARY | 2025-03-11 14:17 | XMS_ITS | Encounter Summary ---
Author Organization Healthcare Address [address] [place] [address] Care Team Providers Care Playback Operator Name Role Phone Unavailable Primary Care Provider Unavailabl e Encounter Details Date Type Department Care Team (Late st Contact Info) Description 03/04/2025 Orders Only External Location [address] [place] [address] Timothy Baker MD 110 [facility] [address] [place] [address] Social History Tobacco Use Types [...] Info) Description 08/14/2025 11:00 AM EST Appointment [facility] MRI [address] [place] [id number] 08/14/2025 1:15 PM EST Office Visit [place] [facility] [address] [place] [address] Matthew Francis MD [address] [place] [address] documented as of this encounter [...]
--- OUTSIDE RECORDS SUMMARY | 2025-03-11 14:17 | XMS_ITS | Clinical Summary ---
Author Organization Healthcare Address [address] [place] [address] Care Team Providers Care Privacy Specialist Name Role Phone Unavailable Primary Care Provider Unavailabl e Encounters Date Type Department Care Team Description 03/05/2025 Telephone [facility] [address], [address]st [place] [phone] Matthew Francis MD HCN - Patient Message (Return call) 03/04/2025 Orders Only [facility] [address], [address] [place] [phone] Matthew Francis MD Cerebral aneurysm, nonruptured (Primary Dx) 03/04/2025 Orders Only External Location [address] [place] [address] Timothy Baker MD 03/04/2025 Orders Only External Location [address] [place] [address] Timothy Baker MD 03/04/2025 Orders Only External Location [address] [place] [phone] Timothy Baker MD from Last 3 Months Social History Tobacco Use Types Packs/Day Years Used Date Smoking Tobacco: Never Assessed Sex and Gender Information Value Date Recorded Sex Assigned at Not on file Legal Sex Male 3:19 PM EDT Gender Identity Not on file Sexual Orientation Not on file Plan of Treatment Upcoming Encounters Date Type Department Care Team (Late st Contact Info) Description 08/14/2025 11:00 AM EST Appointment [facility] MRI [address] [place] [address] 08/14/2025 1:15 PM EST Office Visit [facility] [address], [address] [place] [address] Matthew Francis MD [address] [place] [address] Health Maintenance Due Date Last Done Comments [facility]-Depression Screening 1939 [facility]-Infant/Child/Adol SDOH Screenings 1939 [facility]- SDOH Screenings 1957 [facility]-Adult SDOH Screenings 1957 [facility]-DTaP,Tdap,and Td Vaccines (1 - Tdap) 1958 [facility]-Zoster Vaccines (1 of 2) 1989 [facility]-RSV Vaccine: 60+ Years or (1 - 1-dose 75+ series) 2014 [facility]-Pneumococcal Vaccine: 50+ Years (2 of 2 - PPSV23) 06/03/2017 06/03/2016 BSO-OVALG-50 Vaccine ( season) 2024 06/01/2021, 09/17/2020, 08/19/2020 [facility]-Influenza Vaccine (#1) 03/23/202504/02, 04/04/2023, 04/28/2021, Additional history exists HPV Vaccines Aged Out No longer eligi ble based on patient's age to complete this topic UKY-HIB Vaccines Aged Out No longer e ligible based on patient's age to complete this topic [facility]-Hepatitis A Vaccines Aged Out No longer eligible based on patient's age to complete this topic [facility]-IPV Vaccines Aged Out No longer e ligible based on patient's age to complete this topic [facility]-Rotavirus Vaccines Aged Out No lo nger eligible based on patient's age to complete this topic Procedures Procedure Name Priority Date/Time Associated Diagnosis Comments CT OUTSIDE IMAGES 03/04/2025 1:[address] OUTSIDE IMAGES 03/04/2025 1:[address] OUTSIDE IMAGES 03/04/2025 1:55 PM EDT from Last 3 Months Results * CT OUTSIDE IMAGES (03/04/2025 1:59 PM EDT) Only the most recent of3 resultswithin the time period is included. Anatomical Region Laterality Modality Computed Tomogra phy 03/04/2025 1:59 PM EDT us Timothy Baker MD IMG CT PROCEDURES Final Result from Last 3 Months
--- OUTSIDE RECORDS SUMMARY | 2025-03-11 14:17 | XMS_ITS | Clinical Summary ---
Author Organization [facility] Address [address] [facility], [address] [place] [address] Care Team Providers Care Slip Laster Name Role Phone System, Referring Not In [...] 3 times daily as needed for Pain [place] JOSE::[id number] 2 60 tablet 0 06/02/2015 Active Active [...] Plan of Treatment Not on file Insurance [facility] [address] MEDICARE Advance Directives * Full Code (Latest Code Status on File) Date Activated Date Inactivated Comments 05/25/2015 1:53 PM 05/27/2015 1:09 PM * Full Code Date Activated Date Inactivated Comments 12/09/2013 2:01 PM 12/11/2013 2:16 PM Care Teams Slip Laster Relationship Specialty Start Date End Date System, Referring Not In PCP - General 05/04/15
--- OUTSIDE RECORDS SUMMARY | 2025-03-11 14:17 | XMS_ITS | Encounter Summary ---
Author Organization Healthcare Address [address] [place] [address] Care Team Providers Care Statistical Typist Name Role Phone Unavailable Primary Care Provider Unavailabl e Reason for Visit * Reason Onset Date Comments HCN - Patient Message 03/05/2025 Return juan antonio l Encounter Details Date Type Department Care Team (Late Contact Info) Description 03/05/2025 Telephone [place] [facility] [address], [address] [place] [address] Matthew Francis MD [address] [place] [address] HCN - Patient Message (Return call) Social History Tobacco Use Types Packs/Day Years Used Date Smoking Tobacco: Never Assessed Sex and Gender Information Value Date Recorded Sex Assigned at Not on file Legal Sex Male 3:19 PM EDT Gender Identity Not on file Sexual Orientation Not on file documented as of this encounter Miscellaneous Notes * Telephone Encounter - Gelacio Pelayo - 03/05/2025 4:42 PM EDT Patient Phone Message Reason for Call: Patient's returned call and would like another call back. Best contact number and optimal time of day to reach caller: Please call [phone] Note: Please do not reply to this message. Follow-up communication and further actions as a result of this message need to be communicated with the patient directly, if the patient is not active onMyChart. If the patient is active on MyChart, they will receive notification of the communication/outcome via MyChart. documented in this encounter Plan of Treatment Upcoming Encounters Date Type Department Care Team (Late st Contact Info) Description 08/14/2025 11:00 AM EST Appointment [facility] MRI [address] [place] [phone] 08/14/2025 1:15 PM EST Office Visit [place] [facility] [address], [address] [place] [address] Matthew Francis MD [address] [facility] [address] [place] [address] documented as of this encounter Visit Diagnoses Not on filedocumented in this encounter
--- OUTSIDE RECORDS SUMMARY | 2025-03-11 14:17 | XMS_ITS | Clinical Summary ---
Author Organization [facility] Address [address] [place] [phone] Phone Care Team Providers Care Picking Supervisor Name Role Phone Fadi Guerrero MD Unavailable [phone] Allergies No known active allergies Medications atorvastatin [...] TUNNEL RELEASE; Surgeon: Vincent Thurston MD; [facility]; Service: Hand Medical History Medical History [...] GODWIN MR HENRY GODWIN MR * Guarantor: Jnuior Guerrero Account Type Relation to Patient Date of Phone Billing Address [place] Personal Family Self Care Teams Picking Supervisor Relationship Specialty Start Date End Date Fadi Guerrero MD Internal Medicine-Cardiovascular Disease 03/05/18
--- OUTSIDE RECORDS SUMMARY | 2025-03-11 14:17 | XMS_ITS | Encounter Summary ---
Author Organization Healthcare Address [address] [place] [address] Care Team Providers Care Fuse Assembler Name Role Phone Unavailable Primary Care Provider Unavailabl e Encounter Details Date Type Department Care Team (Late st Contact Info) Description 03/04/2025 Orders Only External Location [address] [place] [address] Timothy Baker MD [address] [facility] [address] [place] [address] Social History Tobacco Use Types [...] Description 08/14/2025 11:00 AM EST Appointment [facility] MRI [address] [place] [id number] 08/14/2025 1:15 PM EST Office Visit [place] [facility] [address], [address]st [place] [address] Matthew Francis MD [address] [place] [address] documented as of this encounter Procedures Procedure Name Priority Date/Time Associated Diagnosis Comments CT OUTSIDE IMAGES 03/04/2025 1:55 PM EDT documented in this encounter Results * CT OUTSIDE IMAGES (03/04/2025 1:55 PM EDT) Anatomical Region Laterality Modality Computed Tomogra phy 03/04/2025 1:55 PM EDT us Timothy Baker MD IMG CT PROCEDURES Final Result documented in this encounter Visit Diagnoses Not on filedocumented in this encounter
--- OUTSIDE RECORDS SUMMARY | 2025-03-11 14:17 | XMS_ITS | Encounter Summary ---
Author Organization Healthcare Address [address] [place] [address] Care Team Providers Care Ditching Machine Operating Engineer Name Role Phone Unavailable Primary Care Provider Unavailabl e Reason for Referral * Imaging (Routine) - Pending Review Specialty Diagnoses / Procedures Referred By Contac t Referred To Contact Radiology Diagnoses Cerebral aneurysm, nonruptured Procedures MR Angio Head wo IV Contrast Matthew Francis MD [address] [address] Phone: tel: fax: Referral ID Status Reason Start Date Expiration Date V isits Requested Visits Authorized [id number] Pending Review 03/04/2025 09/03/2026 1 1 Encounter Details Date Type Department Care Team (Late st Contact Info) Description 03/04/2025 Orders Only [place] [facility] [address], [address]st [place] [address] Matthew Francis MD [address] [address] Cerebral aneurysm, nonruptured (Primary Dx) Social History Tobacco Use Types Packs/Day Years [...] Info) Description 08/14/2025 11:00 AM EST Appointment [facility] MRI [address] [place] [id number] 08/14/2025 1:15 PM EST Office Visit [place] [facility] [address], [address] [place] [address] Matthew Francis MD [address] [place] [address] Scheduled Orders Name Type Priority Associated Diagnoses Orde r Schedule MR Angio Head wo IV Contrast Imaging Routine Cerebral aneurysm, nonruptured Expected: 09/04/2025 (Approximate), Expires: 09/05/2026 documented as of this encounter Visit Diagnoses Diagnosis Cerebral aneurysm, nonruptured- Primary documented in this encounter
[2025-03-11 14:37] LABS: Hematocrit 40.8 % (42.0-52.0); Hemoglobin 13.6 g/dL (14.1-18.0); Immature Granulocytes % 0.2 %; Mean Corpuscular HGB Conc 33.3 g/dL (31.8-35.4); Mean Corpuscular Hemoglobin 32.0 pg (27.0-31.2); Mean Corpuscular Volume 96.0 fl (80-94); Nucleated Red Blood Cells % 0 %; Platelet Count 181 K/mm3 (142-424); Red Blood Count 4.25 M/mm3 (4.60-6.20); Red Cell Distribution Width-SD 44.7 fL; White Blood Count 5.3 K/mm3 (4.8-10.8)
[2025-03-11 15:10] LABS: Alanine Aminotransferase 26 U/L (12-78); Albumin Level 4.3 g/dl (3.5-5.0); Alkaline Phosphatase 88 U/L (38-126); Anion Gap 12.4 mEq/L (5-15); Aspartate Amino Transferase 32 U/L (17-59); Bilirubin,Direct 0.1 mg/dl (0.0-0.4); Bilirubin,Indirect 0.7 mg/dL (0.0-0.9); Bilirubin,Total 0.8 mg/dl (0.2-1.3); Bilirubin,Unconjugated 0.7 mg/dL (0.0-1.1); Blood Urea Nitrogen 26 mg/dl (9-20); Calcium 9.3 mg/dl (8.4-10.2); Carbon Dioxide 30 mmol/L (22.0-30.0); Chloride 103 mmol/L (98-107); Cholesterol 136 mg/dl (140-200); Creatinine,Serum 0.90 mg/dl (0.66-1.25); Estimated Glomerular Filt Rate 80 ml/min (>60); GFR (African American) 97 ML/MIN (>60); Glucose 124 mg/dl (74-100); HDL Cholesterol 35 mg/dl (40-60); Magnesium 2.1 mg/dl (1.6-2.3); Potassium 4.4 mmoL/L (3.5-5.1); Sodium 141 mmol/L (136-145); Total Protein,Serum 6.8 g/dl (6.3-8.2); Triglycerides 238 mg/dl (30-150)
[2025-03-11 15:26] LABS: Free T4 (Free Thyroxine) 1.47 ng/dl (0.78-2.19)
[2025-03-11 15:41] LABS: Thyroid Stimulating Hormone < 0.02 uIU/mL (0.465-4.68)
== END 2025-03-11 23:59 | disposition home or self-care (01) ==
LOC: LAB 14:12
PROVIDERS: PCP Family Medicine; Visit Provider Internal Medicine
DX: I25.10 Atherosclerotic heart disease of native coronary artery without angina pectoris (principal); E78.5 Hyperlipidemia, unspecified; I10 Essential (primary) hypertension; I72.5 Aneurysm of other precerebral arteries; Z79.899 Other long term (current) drug therapy
CPT/HCPCS: 36415; 80048; 80061; 80076; 82088; 82384; 83735; 83835; 84439; 84443; 85025

== ENCOUNTER 2025-03-26 09:38 | Outpatient (CLI) | payer MEDICARE, OTHER, SELFPAY ==
--- NOTE | 2025-03-26 09:45 | CA_ITS ---
APPROVED REPORT EXAM: Comprehensive 2D, Doppler, and color-flow Echocardiogram Weed Sprayer: Leonie Green RVT Ht: 5 ft 10 in Wt: 177lbs BSA: 1.98 BP: 101/80 mmHg Indications: CORONARY ARTERY DISEASE,ABNORMAL EKG 2D Dimensions IVSd 2.77 cm M: 0.6-1.2 LVEF (Visual) 62.30 % PWd 0.94 cm M: 0.6 - 1.2 LA Volume 86.40 mL LVDd 3.87 cm M: 4.2 - 5.9 LA Volume Index 43.64 mL/m2 (M/F) 16-34 LVDs 2.59 cm M: 2.5 - 4.0 M-Mode Dimensions LA Diam 3.75 cm (1.9-4.0) TAPSE 2.18 (<1.7) LV Diastology E Decel Time 150 (160-240 msec) E/A Ratio 2.4 Aortic Valve GAYE Index 1.30 cm2/m2 AoV Peak Randolph. 152.0 (50-130 cm/s) AO Peak GR. 9.30 mmHg AO Mean GR. 5.90 (<5 mmHg) AO VTI 40.3 (18-25 cm) GAYE (VTI) 2.64 (2.5-4.5 cm2) Mitral Valve MV E Max Randolph. 120.0 (40-130 cm/s) MV A Velocity 50.0 (40-130 cm/s) E/A Ratio 2.37 MV PHT 44.0 ms Pulmonary Valve PV Peak Velocity 83.0 (50-150 cm/s) Tricuspid Valve TR P. Velocity 241.00 cm/s RAP Estimate 8.00 mmHg RVSP 31.30 mmHg Left Ventricle The left ventricle is normal size. Left ventricular systolic function is normal. The left ventricular ejection fraction is within the normal range. There is increased left ventricular wall thickness. Proximal septal thickening is present. There is normal LV segmental wall motion. Grade 3 diastolic dysfunction is present. LVEF is 65% Right Ventricle The right ventricle is normal size. The right ventricular systolic function is normal. Atria The left atrium is moderately dilated. The right atrium is moderately dilated. There is no color Doppler evidence of interatrial shunt. Aortic Valve The aortic valve is mildly thickened. There is no hemodynamically significant aortic valvular stenosis. No aortic regurgitation is present. Mitral Valve The mitral valve is normal in structure. No evidence of mitral valve stenosis. Mild mitral regurgitation is present. Tricuspid Valve The tricuspid valve leaflets are thin and pliable. Mild tricuspid regurgitation. RVSP is 25-30 mmHg. Pulmonic Valve The pulmonary valve is grossly normal in structure. Mild pulmonic valve regurgitation is present. Great Vessels The aortic root is normal in size. 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 IVC is normal in size and collapses >50% with inspiration. Pericardium There is no pericardial effusion. Other Information Study Quality: Fair Conclusion Normal biventricular systolic function (LVEF 65%). Grade 3 diastolic dysfunction. Biatrial dilation. Mild MR, mild TR, mild CA. 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 Electronically signed by : Shelby Hummel MD 03/27/2025 22:58:00
--- OUTSIDE RECORDS SUMMARY | 2025-03-26 09:47 | XMS_ITS | Encounter Summary ---
Author Organization Healthcare Address [address] [place] [address] Care Team Providers Care Blow Pit Operator Name Role Phone Unavailable Primary Care Provider Unavailabl e Encounter Details Date Type Department Care Team (Late st Contact Info) Description 03/04/2025 Orders Only External Location [address] [place] [address] Timothy Baker MD [address] [facility] [address] [place] [address] Social History Tobacco Use Types [...] Info) Description 08/14/2025 11:00 AM EST Appointment [facility] MRI [address] [place] [address] 08/14/2025 1:15 PM EST Office Visit [place] [facility] [address], 1st [place] [address] Matthew Francis MD [address] [place] [address] documented as of this encounter [...]
--- OUTSIDE RECORDS SUMMARY | 2025-03-26 09:47 | XMS_ITS | Encounter Summary ---
Author Organization Healthcare Address [address] [place] [address] Care Team Providers Care Banana Grader Name Role Phone Unavailable Primary Care Provider Unavailabl e Reason for Visit * Reason Onset Date Comments HCN - Patient Message 03/05/2025 Return juan antonio l Encounter Details Date Type Department Care Team (Late Contact Info) Description 03/05/2025 Telephone [place] [facility] [address], 1st [place] [address] Matthew Francis MD [address] [place] [address] HCN - Patient Message (Return [...] of day to reach caller: Please call [phone] Note: Please do not reply to this [...] Description 08/14/2025 11:00 AM EST Appointment [facility] MRI [address] [place] [phone] 08/14/2025 1:15 PM EST Office Visit [place] [facility] [address], [address] [place] [address] Matthew Francis MD [address] [facility] [address] [place] [address] documented as of this encounter Visit Diagnoses Not on filedocumented in this encounter
--- OUTSIDE RECORDS SUMMARY | 2025-03-26 09:47 | XMS_ITS | Encounter Summary ---
Author Organization Healthcare Address [address] [place] [address] Care Team Providers Care Billet Header Name Role Phone Unavailable Primary Care Provider Unavailabl e Encounter Details Date Type Department Care Team (Late st Contact Info) Description 03/04/2025 Orders Only External Location [address] [place] [address] Timothy Baker MD 110 [facility] [address] [place] [address] Social History Tobacco Use Types [...] Description 08/14/2025 11:00 AM EST Appointment [facility] MRI [address] [place] [phone] 08/14/2025 1:15 PM EST Office Visit [place] [facility] [address], [address]st [place] [address] Matthew Francis MD [address] [place] [address] documented as of this encounter [...]
--- OUTSIDE RECORDS SUMMARY | 2025-03-26 09:47 | XMS_ITS | Encounter Summary ---
Author Organization Healthcare Address [address] [place] [address] Care Team Providers Care Pet Caretaker Name Role Phone Unavailable Primary Care Provider Unavailabl e Reason for Referral * Imaging (Routine) - Pending Review Specialty Diagnoses / Procedures Referred By Contac t Referred To Contact Radiology Diagnoses Cerebral aneurysm, nonruptured Procedures MR Angio Head wo IV Contrast Matthew Francis MD [address] [address] Phone: tel: fax: Referral ID Status Reason Start Date Expiration Date V isits Requested Visits Authorized [id number] Pending Review 03/04/2025 09/03/2026 1 1 Encounter Details Date Type Department Care Team (Late st Contact Info) Description 03/04/2025 Orders Only [place] [facility] [address], [address]st [place] [address] Matthew Francis MD [address] [address] Cerebral aneurysm, nonruptured (Primary Dx) [...] Info) Description 08/14/2025 11:00 AM EST Appointment [facility] MRI [address] [place] [address] 08/14/2025 1:15 PM EST Office Visit [place] [facility] [address], [address] [place] [address] Matthew Francis MD [address] [place] [address] Scheduled Orders Name Type Priority Associated Diagnoses Orde r Schedule MR Angio Head wo IV Contrast Imaging Routine Cerebral aneurysm, nonruptured Expected: 09/04/2025 (Approximate), Expires: 09/05/2026 documented as of this encounter Visit Diagnoses Diagnosis Cerebral aneurysm, nonruptured- Primary documented in this encounter
--- OUTSIDE RECORDS SUMMARY | 2025-03-26 09:47 | XMS_ITS | Clinical Summary ---
Author Organization [facility] Address [address] [facility], [address] [place] [address] Care Team Providers Care Hob Mill Operator Name Role Phone System, Referring Not In [...] 3 times daily as needed for Pain [place] [id number] 2 60 tablet 0 06/02/2015 Active Active [...] Plan of Treatment Not on file Insurance [facility] [address] MEDICARE Advance Directives * Full Code (Latest Code Status on File) Date Activated Date Inactivated Comments 05/25/2015 1:53 PM 05/27/2015 1:09 PM * Full Code Date Activated Date Inactivated Comments 12/09/2013 2:01 PM 12/11/2013 2:16 PM Care Teams Hob Mill Operator Relationship Specialty Start Date End Date System, Referring Not In PCP - General 05/04/15
--- OUTSIDE RECORDS SUMMARY | 2025-03-26 09:47 | XMS_ITS | Encounter Summary ---
Author Organization Healthcare Address [address] [place] [address] Care Team Providers Care Linux Admin Engineer Name Role Phone Unavailable Primary Care Provider Unavailabl e Encounter Details Date Type Department Care Team (Late st Contact Info) Description 03/04/2025 Orders Only External Location [address] [place] [address] Timothy Baker MD 110 [facility] [address] [place] [address] Social History Tobacco Use Types [...] Info) Description 08/14/2025 11:[address] [facility] MRI [address] [place] [phone] 08/14/2025 1:15 PM EST Office Visit [place] [facility] [address], [address]st [place] [address] Matthew Francis MD [address] [place] [address] documented as of this encounter [...]
--- OUTSIDE RECORDS SUMMARY | 2025-03-26 09:47 | XMS_ITS | Clinical Summary ---
Author Organization [facility] Address [address] [place] [phone] Phone Care Team Providers Care Manufacturing Technologist Name Role Phone Fadi Guerrero MD Unavailable [phone] Allergies No known active allergies Medications atorvastatin [...] TUNNEL RELEASE; Surgeon: Vincent Thurston MD; [facility]; Service: Hand Medical History Medical History [...] Tdap) 03/21/2020 03/21/2010 COVID-19 Vaccine (4 - 2024-2 6 season) 2025 06/01/2021, 09/17/2020, 08/19/2020 Influenza Vaccine (#1) 2025 [...] body weight General No Alee Thomason MD Procedures Procedure Name Priority Date/Time Associated Diagnosis Comments SCANNED LABS 03/20/2025 5:00 PM EDT SCANNED LABS 03/20/2025 3:57 PM EDT from Last 3 Months Results * SCANNED LABS (03/20/2025 5:00 PM EDT) Only the most recent of2 resultswithin the time period is included. 03/20/2025 5:00 PM EDT us Unknown Provider HEMATOLOGY ORDERABLES Final Res ult from Last 3 Months Insurance HENRY GODWIN MR HENRY GODWIN MR * Guarantor: Junior Guerrero Account Type Relation to Patient Date of Phone Billing Address [place] Personal Family Self Care Teams Manufacturing Technologist Relationship Specialty Start Date End Date Fadi Guerrero MD Internal Medicine-Cardiovascular Disease 03/05/18
--- OUTSIDE RECORDS SUMMARY | 2025-03-26 09:47 | XMS_ITS | Clinical Summary ---
Author Organization Healthcare Address [address] [place] [address] Care Team Providers Care Certified Social Workers In Health Care Name Role Phone Unavailable Primary Care Provider Unavailabl e Encounters Date Type Department Care Team Description 03/05/2025 Telephone [facility] [address], 1st [place] [address] Matthew Francis MD HCN - Patient Message (Return call) 03/04/2025 Orders Only [facility] [address], [address] [place] [phone] Matthew Francis MD Cerebral aneurysm, nonruptured (Primary Dx) 03/04/2025 Orders Only External Location [address] [place] [address] Timothy Baker MD 03/04/2025 Orders Only External Location [address] [place] [address] Timothy Baker MD 03/04/2025 Orders Only External Location [address] [place] [address] Timothy Baker MD from Last 3 Months [...] Info) Description 08/14/2025 11:00 AM EST Appointment [facility] MRI [address] [place] [address] 08/14/2025 1:15 PM EST Office Visit [facility] [address], [address] [place] [address] Matthew Francis MD [address] [place] [address] Health Maintenance Due Date Last Done Comments [facility]-Depression Screening 1939 [facility]-Infant/Child/Adol SDOH Screenings 1939 [facility]- SDOH Screenings 1957 [facility]-Adult SDOH Screenings 1957 [facility]-DTaP,Tdap,and Td Vaccines (1 - Tdap) 1958 [facility]Y-Zoster Vaccines (1 of 2) 1989 [facility]-RSV Vaccine: 60+ Years or (1 - 1-dose 75+ series) 2014 [facility]Y-Pneumococcal Vaccine: 50+ Years (2 of 2 - PPSV23) 06/03/2017 06/03/2016 [id number] Vaccine ( season) 2024 06/01/2021, 09/17/2020, 08/19/2020 [...]
--- NOTE | 2025-03-26 10:30 | US_ITS ---
FINAL REPORT CLINICAL HISTORY: I10 - Essential (primary) hypertension FINDINGS: RENAL ULTRASOUND Ultrasound images of the kidneys were obtained. Limited images of the liver parenchyma demonstrates normal echogenicity. The right kidney measures 9.2 cm in length. The left kidney measures 9.6 cm in length. Benign-appearing cysts in both kidneys measuring up to 1.1 cm. There is no hydronephrosis. IMPRESSION: bilateral benign cysts. Reviewed, Interpreted and Dictated by Gurjit Obrien MD Transcribed by Edilma Gomez Authenticated and [facility]
--- NOTE | 2025-03-26 11:00 | CA_ITS ---
FINAL REPORT CLINICAL HISTORY: HTN,CAD,HLD COMPARISON: None FINDINGS: Aorta velocity: 85 cm/sec Right kidney: 9.7 cm. No evidence of hydronephrosis or mass. There is slight increase in right renal cortical echogenicity. There is a small 1.4 cm hypoechoic right renal cyst. Right intrarenal RI: 0.55-0.64 Right renal artery velocity: 178 cm/sec. Right RAR (Renal artery-Aortic Ratio): 2.1 Left Kidney: 10 cm. No evidence of hydronephrosis or mass. Left intrarenal RI: 0.50-0.70 Left renal artery velocity: 200 cm/sec. Left RAR (Renal Artery-Aortic Ratio): 2.4 IMPRESSION: Less than 60% stenosis of the bilateral renal arteries. Slight increase in right renal cortical echogenicity compared to the left. CT angiogram or postcontrast MR angiogram would be more sensitive for evaluation of possible renal artery stenosis. Reviewed, Interpreted and Dictated by Gurjit Obrien MD Transcribed by Tati Chahal Authenticated and [facility]
[2025-04-01 11:35] LABS: Dopamine, Ur, 24hr 160 ug/24 hr (0-510); Dopamine, Urine 170 ug/L (Undefined); Epinephrine, U, 24hr 8 ug/24 hr (0-20); Epinephrine, Urine 8 ug/L (Undefined); Norepinephrine, Ur 59 ug/L (Undefined); Norepinephrine,U,24h 55 ug/24 hr (0-135); VMA, Urine 4.0 mg/L (Undefined); VMA, Urine, 24hr 3.8 mg/24 hr (0.0-7.5)
[2025-04-02 00:07] LABS: Metanephrine, U,24hr 115 ug/24 hr (58-276); Metanephrine, Ur 122 ug/L (Undefined); Normetanephr.,U,24h 306 ug/24 hr (156-729)
== END 2025-03-26 23:59 | disposition home or self-care (01) ==
LOC: RT 09:38
PROVIDERS: PCP Family Medicine; Visit Provider Internal Medicine
DX: I08.8 Other rheumatic multiple valve diseases (principal); I11.9 Hypertensive heart disease without heart failure; I77.810 Thoracic aortic ectasia; I70.1 Atherosclerosis of renal artery; I72.5 Aneurysm of other precerebral arteries; E78.5 Hyperlipidemia, unspecified; I25.10 Atherosclerotic heart disease of native coronary artery without angina pectoris; N28.1 Cyst of kidney, acquired; R93.421 Abnormal radiologic findings on diagnostic imaging of right kidney; R94.31 Abnormal electrocardiogram [ECG] [EKG]; Z79.899 Other long term (current) drug therapy
CPT/HCPCS: 76770; 82384; 83835; 84585; 93306; 93976

== ENCOUNTER 2025-04-22 13:37 | Outpatient (CLI) | payer MEDICARE, OTHER, SELFPAY ==
--- OUTSIDE RECORDS SUMMARY | 2025-04-22 13:41 | XMS_ITS | Clinical Summary ---
Author Organization Healthcare Address [address] [place] [address] Care Team Providers Care Relay Shop Supervisor Name Role Phone Unavailable Primary Care Provider Unavailabl e Encounters Date Type Department Care Team Description 03/05/2025 Telephone [facility] [address], [address] [place] [phone] Matthew Francis MD HCN - Patient Message (Return call) 03/04/2025 Orders Only [facility] [address], [address] [place] [phone] Matthew Francis MD Cerebral aneurysm, nonruptured (Primary Dx) 03/04/2025 Orders Only External Location [address] [place] [address] Timothy Baker MD 03/04/2025 Orders Only External Location [address] [place] [address] Timothy Baker MD 03/04/2025 Orders Only External Location [address] [place] [phone] Timothy Baker MD from Last 3 Months [...] Info) Description 08/14/2025 11:00 AM EST Appointment [facility] MRI [address] [place] [address] 08/14/2025 1:15 PM EST Office Visit [facility] [address], [address] [place] [phone] Matthew Francis MD [address] [place] [address] Health Maintenance Due Date Last Done Comments [facility]-Depression Screening 1939 [facility]-Infant/Child/Adol SDOH Screenings 1939 [facility]- SDOH Screenings 1957 [facility]-Adult SDOH Screenings 1957 [facility]-DTaP,Tdap,and Td Vaccines (1 - Tdap) 1958 [facility]-Zoster Vaccines (1 of 2) 1989 [facility]-RSV Vaccine: 60+ Years or (1 - 1-dose 75+ series) 2014 [facility]-Pneumococcal Vaccine: 50+ Years (2 of 2 - PCV20 or PCV21) 06/03/2017 06/03/2016 [id number] Vaccine ( - season) 2025 06/01/2021, 09/17/2020, 08/19/2020 [facility]-Influenza Vaccine (#1) 03/23/202504/02, [...]
--- OUTSIDE RECORDS SUMMARY | 2025-04-22 13:41 | XMS_ITS | Encounter Summary ---
Author Organization Healthcare Address [address] [place] [address] Care Team Providers Care Retail Wireless Sales Representative Name Role Phone Unavailable Primary Care Provider Unavailabl e Reason for Visit * Reason Onset Date Comments HCN - Patient Message 03/05/2025 Return juan antonio l Encounter Details Date Type Department Care Team (Late Contact Info) Description 03/05/2025 Telephone [place] [facility] [address], [address] [place] [address] Matthew Francis MD [address] [place] [address] HCN - Patient Message (Return [...] of day to reach caller: Please call [phone] Note: Please do not reply to this [...] Description 08/14/2025 11:00 AM EST Appointment [facility] MRI [address] [place] [id number] 08/14/2025 1:15 PM EST Office Visit [place] [facility] [address], [address] [place] [address] Matthew Francis MD [address] [facility] [address] [place] [address] documented as of this encounter Visit Diagnoses Not on filedocumented in this encounter
--- OUTSIDE RECORDS SUMMARY | 2025-04-22 13:41 | XMS_ITS | Clinical Summary ---
Author Organization [facility] Address [address] [facility], [address] [place] [address] Care Team Providers Care Researcher Name Role Phone System, Referring Not In [...] 3 times daily as needed for Pain [place] [id number] 2 60 tablet 0 06/02/2015 Active Active [...] Plan of Treatment Not on file Insurance [facility] [id number] MEDICARE Advance Directives * Full Code (Latest Code Status on File) Date Activated Date Inactivated Comments 05/25/2015 1:53 PM 05/27/2015 1:09 PM * Full Code Date Activated Date Inactivated Comments 12/09/2013 2:01 PM 12/11/2013 2:16 PM Care Teams Researcher Relationship Specialty Start Date End Date System, Referring Not In PCP - General 05/04/15
--- OUTSIDE RECORDS SUMMARY | 2025-04-22 13:41 | XMS_ITS | Encounter Summary ---
Author Organization Healthcare Address [address] [place] [address] Care Team Providers Care Graphite Mill Operator Name Role Phone Unavailable Primary Care Provider Unavailabl e Encounter Details Date Type Department Care Team (Late st Contact Info) Description 03/04/2025 Orders Only External Location [address] [place] [address] Timothy Baker MD [address] [facility] [address] [place] [address] Social History Tobacco Use Types [...] Info) Description 08/14/2025 11:00 AM EST Appointment [facility] MRI [address] [place] [id number] 08/14/2025 1:15 PM EST Office Visit [place] [facility] [address], [address] [place] [address] Matthew Francis MD [address] [place] [address] documented as of this encounter [...]
--- OUTSIDE RECORDS SUMMARY | 2025-04-22 13:41 | XMS_ITS | Clinical Summary ---
Author Organization [facility] Address [address] [place] [phone] Phone Care Team Providers Care Civil Engineer'S Aide Name Role Phone Fadi Guerrero MD Unavailable [phone] Allergies No known active allergies Medications atorvastatin [...] TUNNEL RELEASE; Surgeon: Vincent Thurston MD; [facility]; Service: Hand Medical History Medical History [...] file Not on file Not on file Last Filed Vital Signs [...] Priority Date/Time Associated Diagnosis Comments SCANNED LABS 04/14/2025 6:15 AM EDT SCANNED LABS 03/20/2025 5:00 PM EDT SCANNED LABS 03/20/2025 3:57 PM EDT from Last 3 Months Results * SCANNED LABS (04/14/2025 6:15 AM EDT) Only the most recent of3 resultswithin the time period is included. 04/14/2025 6:15 AM EDT us Unknown Provider HEMATOLOGY ORDERABLES Final Res ult from Last 3 Months Insurance HENRY GODWIN MR [employer] [facility] MR * Guarantor: Junior Guerrero Account Type Relation to Patient Date of Phone Billing Address [place] Personal Family Self Care Teams Civil Engineer'S Aide Relationship Specialty Start Date End Date Fadi Guerrero MD Internal Medicine-Cardiovascular Disease 03/05/18
--- OUTSIDE RECORDS SUMMARY | 2025-04-22 13:41 | XMS_ITS | Encounter Summary ---
Author Organization Healthcare Address [address] [place] [address] Care Team Providers Care Internal Grinding Machine Operator Name Role Phone Unavailable Primary Care Provider Unavailabl e Encounter Details Date Type Department Care Team (Late st Contact Info) Description 03/04/2025 Orders Only External Location [address] [place] [address] Timothy Baker MD [address] [facility] [address] [place] [address] Social History Tobacco Use Types [...] Info) Description 08/14/2025 11:00 AM EST Appointment [facility] MRI [address] [place] [id number] 08/14/2025 1:15 PM EST Office Visit [place] [facility] [address], [address] [place] [address] Matthew Francis MD [address] [place] [address] documented as of this encounter [...]
--- OUTSIDE RECORDS SUMMARY | 2025-04-22 13:41 | XMS_ITS | Encounter Summary ---
Author Organization Healthcare Address [address] [place] [address] Care Team Providers Care Anesthesia Associate Name Role Phone Unavailable Primary Care Provider Unavailabl e Reason for Referral * Imaging (Routine) - Pending Review Specialty Diagnoses / Procedures Referred By Contac t Referred To Contact Radiology Diagnoses Cerebral aneurysm, nonruptured Procedures MR Angio Head wo IV Contrast Matthew Francis MD [address] [address] Phone: tel: fax: Referral ID Status Reason Start Date Expiration Date V isits Requested Visits Authorized [id number] Pending Review 03/04/2025 09/03/2026 1 1 Encounter Details Date Type Department Care Team (Late st Contact Info) Description 03/04/2025 Orders Only [place] [facility] [address], [address] [place] [address] Matthew Francis MD [address] [address] Cerebral aneurysm, nonruptured (Primary Dx) [...] Info) Description 08/14/2025 11:00 AM EST Appointment [facility] MRI [address] [place] [id number] 08/14/2025 1:15 PM EST Office Visit [place] [facility] [address] [place] [address] Matthew Francis MD [address] [place] [address] Scheduled Orders Name Type Priority Associated Diagnoses Orde r Schedule MR Angio Head wo IV Contrast Imaging Routine Cerebral aneurysm, nonruptured Expected: 09/04/2025 (Approximate), Expires: 09/05/2026 documented as of this encounter Visit Diagnoses Diagnosis Cerebral aneurysm, nonruptured- Primary documented in this encounter
--- OUTSIDE RECORDS SUMMARY | 2025-04-22 13:41 | XMS_ITS | Encounter Summary ---
Author Organization Healthcare Address [address] [place] [address] Care Team Providers Care Customer Operations Manager Name Role Phone Unavailable Primary Care Provider Unavailabl e Encounter Details Date Type Department Care Team (Late st Contact Info) Description 03/04/2025 Orders Only External Location [address] [place] [address] Timothy Baker MD 110 [facility] [address] [place] [address] Social History Tobacco Use Types [...] Description 08/14/2025 11:00 AM EST Appointment [facility] MRI [address] [place] [id number] 08/14/2025 1:15 PM EST Office Visit [place] [facility] [address], [address] [place] [address] Matthew Francis MD [address] [place] [address] documented as of this encounter [...]
[2025-04-22 13:50] LABS: Lyme Ab IgM CIA ND
[2025-04-22 14:46] LABS: Iron 117 ug/dL (49-181)
[2025-04-22 14:57] LABS: Total Iron Binding Capacity 288 ug/dL (261-462)
[2025-04-22 15:23] LABS: Ferritin 138 ng/ml (17.9-464)
[2025-04-24 10:15] LABS: Lyme Ab CIA Negative (Negative)
== END 2025-04-22 23:59 | disposition home or self-care (01) ==
LOC: LAB 13:38
PROVIDERS: PCP Family Medicine; Visit Provider Internal Medicine
DX: E55.9 Vitamin D deficiency, unspecified (principal); R53.83 Other fatigue; Z79.899 Other long term (current) drug therapy; W57.XXXA Bitten or stung by nonvenomous insect and other nonvenomous arthropods, initial encounter; T14.8XXA Other injury of unspecified body region, initial encounter; E78.5 Hyperlipidemia, unspecified
CPT/HCPCS: 36415; 82728; 83540; 83550; 86617; 86618; 87476

== ENCOUNTER 2025-06-11 15:45 | Outpatient (CLI) | payer MEDICARE, SELFPAY ==
[2025-06-11 16:27] LABS: Total Protein,Serum 7.5 g/dl (6.3-8.2)
[2025-06-15 14:11] LABS: Albumin 3.7 g/dL (2.9-4.4); Alpha-1-Globulin 0.2 g/dL (0.0-0.4); Alpha-2-Globulin 0.7 g/dL (0.4-1.0); Gamma Globulin 1.2 g/dL (0.4-1.8); Immunofixation, Urine Comment: (.)
[2025-06-15 15:11] LABS: Albumin, U 31.4 % (.); Alpha-1-Globulin, U 4.3 % (.); Alpha-2-Globulin, U 18.4 % (.); Beta Globulin, U 23.5 % (.); Gamma Globulin, U 22.4 % (.)
== END 2025-06-11 23:59 | disposition home or self-care (01) ==
LOC: LAB 15:45
PROVIDERS: PCP Family Medicine; Visit Provider Internal Medicine
DX: E85.9 Amyloidosis, unspecified (principal)
CPT/HCPCS: 36415; 82784; 83521; 84155; 84156; 84165; 84166; 86335